=== PATIENT | male | born 1990 | race Caucasian/White ===

== ENCOUNTER 2017-04-12 18:10 | Emergency (ER) | payer BC ==
[2017-04-12 18:18] VITALS: PULSE 87; RESP 16; TEMP 97.5; O2SAT 98
--- NOTE | 2017-04-12 18:37 | EDPHY ---
H & P Time Seen by Provider: 04/12/17 18:15 HPI/ROS: CHIEF COMPLAINT: Right-sided abdominal pain, pruritus HISTORY OF PRESENT ILLNESS: 26-year-old male presents to the emergency department by private vehicle complaining of right-sided abdominal pain and flank pain over the last 1 week. The patient also notes that he has had extreme itching. He has taking a large amount of Benadryl and Rut to help with the itching. Does not notice rash. No recent travel. He complains night sweats which she states is malodorous. He was concerned that he was noticing that his skin was turning yellow. He is not notice dark colored urine. He has had normal bowel movements without diarrhea. No blood in his stool. No melena. No chest pain or difficulty breathing. The patient has a history of chronic Lyme disease which was diagnosed 6 months ago and is currently taking Bactrim and azithromycin. He has chronic pain as a result of this. No change in the medications. REVIEW OF SYSTEMS: Constitutional: No fever, no chills. Eyes: No double or blurry vision. ENT: No sore throat. Respiratory: No cough, no shortness of breath. Cardiac: No chest pain. Gastrointestinal: Right-sided abdominal pain. No vomiting or diarrhea. Genitourinary: No dysuria. Musculoskeletal: Right flank pain. No neck pain. Skin: Pruritus as noted above. No rashes. Neurological: No headache. Past Medical/Surgical History: Chronic Lyme disease, chronic pain Social History: Single Smoking Status: Never smoked Physical Exam: General Appearance: Alert, no distress. No apparent distress. Girlfriend at bedside. Eyes: Pupils equal and round. Extraocular motions are all intact. Nonicteric sclera. ENT: Mouth: Mucous membranes moist. Respiratory: No wheezing, rhonchi, or rales, lungs are clear to auscultation. Cardiovascular: Regular rate and rhythm. Gastrointestinal: Abdomen is soft. He has tenderness with palpation in the right upper quadrant. There is no masses, rebound or guarding noted. Positive CVA tenderness on the right, none on the left. Neurological: Alert and oriented x 3, cranial nerves II through XII grossly intact Skin: Warm and dry, no rashes. Musculoskeletal: Nontender to palpate along the cervical, thoracic or lumbar spine. Neck is supple. Extremities: Full range of motion and no peripheral edema. Psychiatric: Patient is oriented X 3, there is no agitation. Constitutional: Initial Vital Signs Temperature (C) 36.4 C 04/12/17 18:14 Heart Rate 87 04/12/17 18:14 Respiratory Rate 16 04/12/17 18:14 Blood Pressure 133/78 H 04/12/17 18:14 O2 Sat (%) 98 04/12/17 18:14 O2 Delivery Mode Room Air Allergies/Adverse Reactions: No Known Allergies Allergy (Unverified 04/12/17 18:12) Home Medications: Medication Instructions Recorded Azithromycin 1,000 mg PO DAILY 04/12/17 Bactrim SS 1,600 mg PO DAILY 04/12/17 Cymbalta 120 mg PO DAILY 04/12/17 Diclofenac Sodium 150 mg PO DAILY 04/12/17 LYRICA 300 mg PO DAILY 04/12/17 Lamotrigine 400 mg PO DAILY 04/12/17 Liothyronine Sodium 10 mg PO DAILY 04/12/17 valACYclovir 2,000 mg PO DAILY 04/12/17 Medical Decision Making - Diagnostics Imaging Results: Imaging Impressions Abdomen Ultrasound 04/12/17 18:35 IMPRESSION: 1. Contracted gallbladder, but no gallstones are identified. 2. There is no bile duct dilatation. 3. Bowel gas obscures much of the pancreas and the midportion of the abdominal aorta. 4. There is a 1.8 cm right hepatic lobe hyperechoic lesion, probably representing benign cavernous hemangioma. Follow-up sonography in 6 months is suggested. 5. Mild hepatomegaly. Findings and recommendations were discussed with LEIA STEPHENS PA-C at 19:29 , on 04/12/2017. Abdomen/Pelvis CT 04/12/17 20:29 Impression: 1. There is no evidence of nephrolithiasis, or obstructive uropathy. This does not exclude the diagnosis of pyelonephritis. 2. Constipation with mild sigmoid colon diverticulosis, but no active inflammation. 3. Mild hepatomegaly versus a Елена's right hepatic lobe. Findings were discussed with LEIA STEPHENS PA-C at 21:45, on 04/12/2017. Attention: This CT examination is specifically designed to evaluate patients who are clinically suspected of having acute obstructive uropathy. This examination does not use radiographic contrast, and as such, provides only a limited evaluation of the abdomen, pelvis, and retroperitoneum. If there is further clinical suspicion for pathological conditions other than obstructive uropathy, a complete CT evaluation of the abdomen and pelvis utilizing intravenous, oral, and rectal contrast should be considered. ED Course/Re-evaluation: 26-year-old male presents to the emergency department with right-sided abdominal pain and flank pain. The patient is concerned that he had more of a yellow skin tone. Laboratory studies were drawn and reveal normal CBC, normal chemistries including LFTs, normal lipase. Urinalysis reveals 5-10 red blood cells. Gallbladder ultrasound was unremarkable with the exception of a 1.8 cm right hepatic lobe possible cavernous hemangioma. Radiologist recommended repeat ultrasound in 6 months to evaluate this. I explained to the patient that he had 5-10 red blood cells in his urine. It is possible that this patient has a kidney stone. I discussed the pros and cons of CT imaging of the abdomen and pelvis including radiation exposure and the patient requests CT scan. CT imaging reveals no evidence of kidney stone. Patient was comfortable being discharged home. He was given primary care referral. He understands to have repeat abdominal ultrasound in 6 months to re- evaluate lesion in his liver. The patient will return if he develops any other change in symptoms or has any other concerns. Differential Diagnosis: Including but not limited to hepatitis, pancreatitis, cholecystitis, cholelithiasis, kidney stone, urinary tract infection, pyelonephritis - Data Points Laboratory Results: Laboratory Results 04/12/17 18:26 04/12/17 18:26 04/12/17 04/12/17 04/12/17 20:00 18:26 18:26 WBC 7.04 10^3/uL 10^3/uL (3.80-9.50) RBC 5.84 10^6/uL 10^6/uL (4.40-6.38) Hgb 17.3 g/dL g/dL (13.7-17.5) Hct 49.3 % % (40.0-51.0) MCV 84.4 fL fL (81.5-99.8) MCH 29.6 pg pg (27.9-34.1) MCHC 35.1 g/dL g/dL (32.4-36.7) RDW 14.6 % % (11.5-15.2) Plt Count 252 10^3/uL 10^3/uL (150-400) MPV 9.6 fL fL (8.7-11.7) Neut % (Auto) 51.9 % % (39.3-74.2) Lymph % (Auto) 36.2 % % (15.0-45.0) [place] % (Auto) 10.1 % % (4.5-13.0) Eos % (Auto) 0.9 % % (0.6-7.6) Baso % (Auto) 0.6 % % (0.3-1.7) Nucleat RBC Rel Count 0.0 % % (0.0-0.2) Absolute Neuts (auto) 3.66 10^3/uL 10^3/uL (1.70-6.50) Absolute Lymphs (auto) 2.55 10^3/uL 10^3/uL (1.00-3.00) Absolute Monos (auto) 0.71 10^3/uL 10^3/uL (0.30-0.80) Absolute Eos (auto) 0.06 10^3/uL 10^3/uL (0.03-0.40) Absolute Basos (auto) 0.04 10^3/uL 10^3/uL (0.02-0.10) Absolute Nucleated RBC 0.00 10^3/uL 10^3/uL (0-0.01) Immature Gran % 0.3 % % (0.0-1.1) Immature Gran # 0.02 10^3/uL 10^3/uL (0.00-0.10) Sodium 141 mEq/L mEq/L (134-144) Potassium 4.0 mEq/L mEq/L (3.5-5.2) Chloride 108 mEq/L mEq/L (97-110) Carbon Dioxide 22 mEq/l mEq/l (22-31) Anion Gap 11 mEq/L mEq/L (8-16) BUN 12 mg/dL mg/dL (7-23) Creatinine 1.2 mg/dL mg/dL (0.7-1.3) Estimated GFR > 60 Glucose 78 mg/dL mg/dL (70-100) Calcium 10.2 mg/dL mg/dL (8.5-10.4) Total Bilirubin 0.7 mg/dL mg/dL (0.1-1.4) Conjugated Bilirubin 0.4 mg/dL mg/dL (0.0-0.5) Unconjugated Bilirubin 0.3 mg/dL mg/dL (0.0-1.1) AST 40 IU/L IU/L (17-59) ALT 51 IU/L IU/L (21-72) Alkaline Phosphatase 49 IU/L IU/L (38-126) Total Protein 7.2 g/dL g/dL (6.3-8.2) Albumin 4.3 g/dL g/dL (3.5-5.0) Lipase 106.0 IU/L IU/L (23-300) Urine Color YELLOW Urine Appearance HAZY Urine pH 9.0 H (5.0-7.5) Ur Specific [place] 1.012 (1.002-1.030) Urine Protein NEGATIVE (NEGATIVE) Urine Ketones NEGATIVE (NEGATIVE) Urine Blood NEGATIVE (NEGATIVE) Urine Nitrate NEGATIVE (NEGATIVE) Urine Bilirubin NEGATIVE (NEGATIVE) Urine Urobilinogen NEGATIVE EU EU (0.2-1.0) Ur Leukocyte Esterase NEGATIVE (NEGATIVE) Urine RBC 5-10 /hpf H /hpf (0-3) Urine WBC 1-3 /hpf /hpf (0-3) Ur Epithelial Cells TRACE /lpf /lpf (NONE-1+) Amorphous Sediment PRESENT /hpf /hpf (NONE-1+) Urine Mucus TRACE /lpf /lpf (NONE-1+) Urine Glucose NEGATIVE (NEGATIVE) Departure - Departure Disposition: Home, Routine, Self-Care Clinical Impression: Abdominal pain Qualifiers: Abdominal location: right lower quadrant Qualified Code(s): R10.31 - Right lower quadrant pain Condition: Good Instructions: Acute Abdominal Pain (ED) Additional Instructions: Abdominal Pain: Return to the Emergency Department immediately for increasing pain, fever, vomiting, or if not completely better in 8-12 hours. You should have a follow-up abdominal ultrasound in 6 months to re-evaluate her liver. You have a 1.8 cm lesion that needs further evaluation. Referrals: GAEL GONZALEZ [Other] - 1-2 days without fail
[2017-04-12 18:44] LABS: % IMMATURE GRANULYOCYTES 0.3 % (0.0-1.1); ABSOLUTE IMMATURE GRANULOCYTES 0.02 10^3/uL (0.00-0.10); ADD DIFF? NO; ADD MORPH? NO; ADD SCAN? NO; ATYPICAL LYMPHOCYTE FLAG 20 (0-99); FRAGMENT RBC FLAG 0 (0-99); HEMATOCRIT 49.3 % (40.0-51.0); HEMOGLOBIN 17.3 g/dL (13.7-17.5); LEFT SHIFT FLG 0 (0-99); LIPEMIA HEMOLYSIS FLAG 90 (0-99); MEAN CELL HEMOGLOBIN 29.6 pg (27.9-34.1); MEAN CELL HEMOGLOBIN CONCENTR. 35.1 g/dL (32.4-36.7); MEAN CELL VOLUME 84.4 fL (81.5-99.8); MEAN PLATELET VOLUME 9.6 fL (8.7-11.7); PLATELET CLUMPS FLAG 0 (0-99); PLATELET COUNT 252 10^3/uL (150-400); RED BLOOD CELL COUNT 5.84 10^6/uL (4.40-6.38); RED CELL DISTRIBUTION WIDTH 14.6 % (11.5-15.2)
[2017-04-12 18:45] VITALS: BP 137/82
[2017-04-12 18:52] LABS: ALANINE AMINOTRANSFERASE 51 IU/L (21-72); ALBUMIN 4.3 g/dL (3.5-5.0); ALKALINE PHOSPHATASE 49 IU/L (38-126); ANION GAP 11 mEq/L (8-16); ASPARTATE AMINOTRANSFERASE 40 IU/L (17-59); BILIRUBIN,TOTAL 0.7 mg/dL (0.1-1.4); BILIRUBIN-CONJUGATED 0.4 mg/dL (0.0-0.5); BILIRUBIN-UNCONJUGATED 0.3 mg/dL (0.0-1.1); CALCIUM 10.2 mg/dL (8.5-10.4); CARBON DIOXIDE 22 mEq/l (22-31); CHLORIDE 108 mEq/L (97-110); CREATININE 1.2 mg/dL (0.7-1.3); GLOMERULAR FILTRATION RATE > 60; GLUCOSE 78 mg/dL (70-100); SODIUM 141 mEq/L (134-144); TOTAL PROTEIN 7.2 g/dL (6.3-8.2)
[2017-04-12 20:05] LABS: COLOR YELLOW; LEUKOCYTE ESTERASE,URINE NEGATIVE (NEGATIVE); NITRITE,URINE NEGATIVE (NEGATIVE)
[2017-04-12 20:09] LABS: AMORPHOUS PRESENT /hpf (NONE-1+); MUCUS TRACE /lpf (NONE-1+)
== END 2017-04-12 22:09 | disposition home or self-care (01) ==
DX: R10.31 Right lower quadrant pain (principal)

== ENCOUNTER 2017-07-19 01:15 | Emergency (ER) | payer BC ==
--- NOTE | 2017-07-19 01:24 | EDPHY ---
H & P Time Seen by Provider: 07/19/17 01:18 HPI/ROS: HPI The patient presents with episode of unresponsiveness, now resolved. The patient was found by his girlfriend and she could not arouse him. The patient says he last remembers working on his computer and then it becomes fuzzy. She called 911. Paramedics noted that he was breathing at a respiratory rate of 5 with a sat of 80% and he was difficult to arouse. They administered Narcan, 2 mg and he became more awake and alert. He denies any opiate use, though his girlfriend does use opiates for menstrual pain he says. He is on multiple medications including Lyrica. REVIEW OF SYSTEMS Constitutional: No fever, no chills. Eyes: No discharge. ENT: No sore throat. Cardiovascular: No chest pain, no palpitations. Respiratory: No cough, no shortness of breath. Gastrointestinal: No abdominal pain, no vomiting. Genitourinary: No hematuria. Musculoskeletal: No back pain. Skin: No rashes. Neurological: No headache. PMHx: States that he has chronic Lyme disease Soc Hx: Lives with his girlfriend, denies alcohol or drug use PHYSICAL General Appearance: Alert, no distress Eyes: Pupils equal and round no pallor or injection ENT, Mouth: Mucous membranes moist Respiratory: There are no retractions, lungs are clear to auscultation Cardiovascular: Regular rate and rhythm Gastrointestinal: Abdomen is soft and non-tender, no masses, bowel sounds normal Neurological: A&O, moves all extremities Skin: Warm and dry, no rashes Musculoskeletal: Neck is supple non tender Extremities: symmetrical, full range of motion Psychiatric: Patient is oriented X 3, there is no agitation Source: Patient, EMS - Medical/Surgical History Hx Asthma: No Hx Chronic Respiratory Disease: No Hx Diabetes: No Hx Cardiac Disease: No Hx Renal Disease: No Hx Cirrhosis: No Hx Alcoholism: No Hx HIV/AIDS: No Hx Splenectomy or Spleen Trauma: No Other PMH: lyme disease - Social History Smoking Status: Never smoked Constitutional: Initial Vital Signs Temperature (C) 36.4 C 07/19/17 01:15 Heart Rate 107 H 07/19/17 01:15 Respiratory Rate 18 07/19/17 01:15 Blood Pressure 147/108 H 07/19/17 01:15 O2 Sat (%) 97 07/19/17 01:15 O2 Delivery Mode Nasal Cannula O2 (L/minute) 2 Allergies/Adverse Reactions: egg [eggs] Allergy (Verified 07/19/17:26) Milk Containing Products [dairy] Allergy (Verified 07/19/17:) peanut Allergy (Verified 07/19/17:) Home Medications: Medication Instructions Recorded Azithromycin 1,000 mg PO DAILY 04/12/17 Cymbalta 120 mg PO DAILY 04/12/17 LYRICA 300 mg PO DAILY 04/12/17 Lamotrigine 400 mg PO DAILY 04/12/17 Liothyronine Sodium 10 mg PO DAILY 04/12/17 valACYclovir 2,000 mg PO DAILY 04/12/17 Cyclobenzaprine 07/19/17 Eszopiclone 07/19/17 Medical Decision Making Differential Diagnosis: This is a 27-year-old man with self-reported history of chronic Lyme disease on multiple medications including Lyrica and Lamictal who presents from home brought in by ambulance for altered mental status with diminished respiratory rate. He is symptoms improved after Narcan 2 mg in the field. Now he is still somewhat sedate though is breathing spontaneously. His pupils are approximately 2 mm, otherwise his exam is nonfocal. Differential diagnosis includes opiate overdose, medication overdose of pre gabapentin, electrolyte disturbance, dehydration, alcohol intoxication. In the emergency department, basic labs were checked and were all unremarkable. Patient was unable to provide a urine specimen. He became more awake and alert though did require oxygen for a small portion of his ER stay. He thinks he could have accidentally taken opioid medications and that could be the cause of his symptoms. His girlfriend was able to pick him up from the emergency room after approximately 6 hours of observation. He did not require any additional doses of Narcan. - Data Points Laboratory Results: Laboratory Results 07/19/17 01:40 07/19/17 01:40 07/19/17 07/19/17 01:40 01:40 WBC 10.17 10^3/uL H 10^3/uL (3.80-9.50) RBC 5.80 10^6/uL 10^6/uL (4.40-6.38) Hgb 17.1 g/dL g/dL (13.7-17.5) Hct 49.1 % % (40.0-51.0) MCV 84.7 fL fL (81.5-99.8) MCH 29.5 pg pg (27.9-34.1) MCHC 34.8 g/dL g/dL (32.4-36.7) RDW 13.1 % % (11.5-15.2) Plt Count 229 10^3/uL 10^3/uL (150-400) MPV 10.0 fL fL (8.7-11.7) Neut % (Auto) 65.1 % % (39.3-74.2) Lymph % (Auto) 26.0 % % (15.0-45.0) [place] % (Auto) 7.3 % % (4.5-13.0) Eos % (Auto) 0.9 % % (0.6-7.6) Baso % (Auto) 0.4 % % (0.3-1.7) Nucleat RBC Rel Count 0.0 % % (0.0-0.2) Absolute Neuts (auto) 6.63 10^3/uL H 10^3/uL (1.70-6.50) Absolute Lymphs (auto) 2.64 10^3/uL 10^3/uL (1.00-3.00) Absolute Monos (auto) 0.74 10^3/uL 10^3/uL (0.30-0.80) Absolute Eos (auto) 0.09 10^3/uL 10^3/uL (0.03-0.40) Absolute Basos (auto) 0.04 10^3/uL 10^3/uL (0.02-0.10) Absolute Nucleated RBC 0.00 10^3/uL 10^3/uL (0-0.01) Immature Gran % 0.3 % % (0.0-1.1) Immature Gran # 0.03 10^3/uL 10^3/uL (0.00-0.10) Sodium 141 mEq/L mEq/L (134-144) Potassium 3.7 mEq/L mEq/L (3.5-5.2) Chloride 104 mEq/L mEq/L (97-110) Carbon Dioxide 21 mEq/l L mEq/l (22-31) Anion Gap 16 mEq/L mEq/L (8-16) BUN 14 mg/dL mg/dL (7-23) Creatinine 1.3 mg/dL mg/dL (0.7-1.3) Estimated GFR > 60 Glucose 101 mg/dL H mg/dL (70-100) Calcium 9.5 mg/dL mg/dL (8.5-10.4) Total Bilirubin 0.4 mg/dL mg/dL (0.1-1.4) AST 54 IU/L IU/L (17-59) ALT 64 IU/L IU/L (21-72) Alkaline Phosphatase 39 IU/L IU/L (38-126) Total Protein 6.8 g/dL g/dL (6.3-8.2) Albumin 4.3 g/dL g/dL (3.5-5.0) Ethyl Alcohol < 10 mg/dL mg/dL (0-10) Departure - Departure Disposition: Home, Routine, Self-Care Clinical Impression: Respiratory depression Altered mental status Qualifiers: Altered mental status type: coma Coma depth: unspecified coma depth Coma timing : unspecified coma timing Qualified Code(s): R40.20 - Unspecified coma Condition: Good Instructions: Altered Mental Status (ED) Additional Instructions: You were very sedated tonight when the paramedics found you. You were barely breathing. This is concerning for an opiate overdose which could be related to taking too many pain pills. I recommend that you avoid taking sedating medicines like Lyrica. I recommend that you take her medications only directly from your pill bottles. You should return to the emergency room if your worse in any way. Referrals: Aida Yost MD [Medical Doctor] - As per Instructions
[2017-07-19 01:29] VITALS: TEMP 97.5
[2017-07-19 01:48] LABS: % IMMATURE GRANULYOCYTES 0.3 % (0.0-1.1); ABSOLUTE IMMATURE GRANULOCYTES 0.03 10^3/uL (0.00-0.10); ADD DIFF? NO; ADD MORPH? NO; ADD SCAN? NO; ATYPICAL LYMPHOCYTE FLAG 10 (0-99); FRAGMENT RBC FLAG 0 (0-99); HEMATOCRIT 49.1 % (40.0-51.0); HEMOGLOBIN 17.1 g/dL (13.7-17.5); LEFT SHIFT FLG 0 (0-99); LIPEMIA HEMOLYSIS FLAG 90 (0-99); MEAN CELL HEMOGLOBIN 29.5 pg (27.9-34.1); MEAN CELL HEMOGLOBIN CONCENTR. 34.8 g/dL (32.4-36.7); MEAN CELL VOLUME 84.7 fL (81.5-99.8); PLATELET CLUMPS FLAG 0 (0-99); PLATELET COUNT 229 10^3/uL (150-400); RED CELL DISTRIBUTION WIDTH 13.1 % (11.5-15.2)
--- NOTE | 2017-07-19 01:48 | CPEKG ---
Heart Rate: 84 RR Interval: 714 P-R Interval: 176 QRSD Interval: 86 QT Interval: 368 QTC Interval: 436 P [place]: 51 QRS [place]: 48 T Wave [place]: 13 EKG Severity - NORMAL ECG - EKG Impression: SINUS RHYTHM Electronically Signed By: Millicent Sun 19-Jul-2017 06:25:26
[2017-07-19 02:00] LABS: ALANINE AMINOTRANSFERASE 64 IU/L (21-72); ALBUMIN 4.3 g/dL (3.5-5.0); ALKALINE PHOSPHATASE 39 IU/L (38-126); ANION GAP 16 mEq/L (8-16); ASPARTATE AMINOTRANSFERASE 54 IU/L (17-59); BILIRUBIN,TOTAL 0.4 mg/dL (0.1-1.4); CALCIUM 9.5 mg/dL (8.5-10.4); CARBON DIOXIDE 21 mEq/l (22-31); CHLORIDE 104 mEq/L (97-110); CREATININE 1.3 mg/dL (0.7-1.3); ETHANOL SERUM < 10 mg/dL (0-10); GLOMERULAR FILTRATION RATE > 60; GLUCOSE 101 mg/dL (70-100); POTASSIUM 3.7 mEq/L (3.5-5.2); SODIUM 141 mEq/L (134-144); TOTAL PROTEIN 6.8 g/dL (6.3-8.2)
[2017-07-19 07:56] VITALS: BP 115/69; PULSE 76; RESP 18; O2SAT 95
== END 2017-07-19 07:56 | disposition home or self-care (01) ==
LOC: EDUNIT#
DX: R40.20 Unspecified coma (principal); J80 Acute respiratory distress syndrome; Z91.010 Allergy to peanuts
CPT/HCPCS: G0480

== ENCOUNTER 2017-09-28 17:20 | Emergency (ER) | payer BC, OTHER ==
--- NOTE | 2017-09-28 17:57 | EDPHY ---
H & P Stated Complaint: OD, narcan Source: Patient Exam Limitations: No limitations - Personal History Current Tetanus/Diphtheria Vaccine: Yes Current Tetanus Diphtheria and Acellular Pertussis (TDAP): Yes Tetanus Vaccine Date: 2015 - Medical/Surgical History Hx Asthma: No Hx Chronic Respiratory Disease: No Hx Diabetes: No Hx Cardiac Disease: No Hx Renal Disease: No Hx Cirrhosis: No Hx Alcoholism: No Hx HIV/AIDS: No Hx Splenectomy or Spleen Trauma: No Other PMH: lyme disease, depression - Social History Smoking Status: Current every day smoker Time Seen by Provider: 09/28/17 17:56 HPI/ROS: HPI: This is a 19-year-old male presents with Chief Complaint: OD, narcan Location: Body Quality: Oxycodone overdose Duration: Prior to arrival Signs and Symptoms:+ nausea, + vomiting, + dull aching headache Timing: Sudden, rapidly improving Severity: Moderate to severe Context: Patient reports that he has a drug and alcohol problem. He intentionally took several pills of oxycodone; will not disclose dosages or how many pills; for chronic back pain. His friend was talking to him on the phone and noted slurred speech. His girlfriend was in the apartment and found him with slurred speech, and impaired mentation. His girlfriend called 911 who gave the patient Narcan and he immediately vomited and became alert and oriented x4. He adamantly denies suicidal ideation/homicidal ideations/ hallucinations. He does admit to taking too many oxycodone as well as not having a prescription for the same medication. Later patient reports he took #6 , 10 mg tabs of oxycodone total. Friends are at bedside and reports that patient has a history of depression and has an alcohol and drug abuse problem. He denies any prior suicide attempts or psychiatric inpatient hospitalizations. Modifying Factors: Narcan Comment: ROS: see HPI Constitutional: No fever, no chills, no weight loss Eyes: No blurred vision Respiratory: No shortness of breath, no cough Cardiovascular: No chest pain Gastrointestinal: No nausea, no vomiting, no diarrhea Genitourinary: No dysuria Extremities: No myalgias Neurologic: No weakness, no numbness Skin: No rashes Hematologic: No bruising, no bleeding MEDICAL/SURGICAL/SOCIAL HISTORY: Medical history: Depression and Lyme disease. Surgical history: Denies Social history: Employed CONSTITUTIONAL: Physically fit young adult white male, awake and alert, no obvious distress HEENT: Atraumatic and normocephalic, PERRL, EOMI. Tympanic membranes clear. Oropharynx clear, no exudate and moist pink mucosa. Airway patent. No lymphadenopathy. No meningismus. Cardiovascular: Normal S1/S2, mild tachycardia, regular rhythm, without murmur rub or gallop. PULMONARY/CHEST: Symmetrical and nontender. Clear to auscultation bilaterally. Good air movement. No accessory muscle usage. ABDOMEN: Soft, nondistended, nontender, no rebound, no guarding, no peritoneal signs, no masses or organomegaly. No CVAT. EXTREMITIES: 2/2 pulses, strength 5/5, no deformities, no clubbing, no cyanosis or edema. NEUROLOGICAL: no focal neuro deficits. GCS 15. Speech is clear. No fine motor or large motor deficits noted. Ambulatory without deficits. SKIN: Warm and dry, no erythema. no rash. Good capillary refill. (Jennifer Onofre) Constitutional: Initial Vital Signs Temperature (C) 36.4 C 09/28/17 17:20 Heart Rate 104 H 09/28/17 17:20 Respiratory Rate 16 09/28/17 17:20 Blood Pressure 148/111 H 09/28/17 17:20 O2 Sat (%) 100 09/28/17 17:20 O2 Delivery Mode Room Air O2 (L/minute) 2 Allergies/Adverse Reactions: egg [eggs] Allergy (Verified 07/19/17 01:26) Milk Containing Products [dairy] Allergy (Verified 07/19/17 01:26) peanut Allergy (Verified 07/19/17 01:26) Home Medications: Medication Instructions Recorded Atovaquone [Mepron] 750 mg PO BID 09/28/17 Azithromycin [Zithromax] 500 mg PO BID 09/28/17 Duloxetine HCl 120 mg PO DAILY 09/28/17 Eszopiclone [Eszopiclone] 3 mg PO HS PRN 09/28/17 Liothyronine Sodium 5 mcg PO BID 09/28/17 Pregabalin [Lyrica 150mg (*)] 150 mg PO BID 09/28/17 lamoTRIgine [Lamictal] 400 mg PO HS 09/28/17 valACYclovir [Valtrex (*)] 1,000 mg PO BID 09/28/17 Medical Decision Making ED Course/Re-evaluation: Labs, UDS, IV fluids, IV medications ordered 1800: Placed on detainer for mental health evaluation for questionable intentional drug overdose. Although patient is adamant he did not intend to harm himself. Patient given 2 L normal saline and IV Zofran 1900: Notified by a nurse that patient is slurring his words and his O2 sats on room air down tonight 79%. IV Narcan 0.4 mg given placed on 2 L nasal cannula with repeat O2 sats comment to 99%. Patient now admits that he took a total of 150 mg of oxycodone between 3 and 4:00 p.m. 190: ED decision to consult for admission, spoke with hospitalist, Dr. Hdz , who kindly accepts to provide further care and requests ICU bed. Labs reviewed and show normal acetaminophen level, normal LFTs; + leukocytosis, elevated anion gap and creatinine of 1.4 all consistent with overdose. 1930: Notified by the charge nurse that we have no ICU beds. Patient will have to be transferred. Call transfer center [facility] Decision made after speaking with attending to keep patient in the ER and to continue to monitor. Repeat acetaminophen level be drawn at 10:25 p.m. placed on M1 hold 2330: Repeat lab value shows stable acetaminophen and LFTs. Medically clear for mental health evaluation. 0030: Spoke with mental health provider who is making the recommendation for patient to be transferred to [address] [place] [address] for further psychiatric care. (Jennifer Onofre) 7:00 a.m.-I assumed care of this patient at shift change. He has been expected to [facility] and will be transported there this morning. He presents with suicidal attempt with an overdose of OxyContin. He received Narcan IV x2 and his mental status and respiratory depression cleared. Overnight, he became upset about admission to mental [facility] and received Zyprexa. He has been mainly sleeping and has been cooperative since then. Accepted to [facility]. (Dennise Arellano) Differential Diagnosis: Altered mental status including but not limited to hypoglycemia, infectious process, electrolyte abnormality, head injury and intoxicants. (Jennifer Onofre) Other Provider: 3:30 a.m. the patient has been medically cleared. He has been evaluated by Mental Health and they plan to admit. He became somewhat angry with this. We will offer him Zyprexa. If he continues to elevate will treat with Haldol. 5:40 a.m. the patient has been accepted by Dr. Roland at [facility]. I have completed transfer paperwork. 7:00 a.m. care transferred to Dr. Dennise Arellano. (Ryan Parks) - Data Points Laboratory Results: Laboratory Results 09/29/17 00:45 09/28/17 18:25 Medications Given: Discontinued Medications Famotidine (Pepcid) 20 mg PO EDNOW ONE Stop: 09/28/17 23:03 Last Admin: 09/28/17 23:07 Dose: 20 mg Sodium Chloride (Ns) 1,000 mls @ 0 mls/hr IV EDNOW ONE; Wide Open PRN Reason: Protocol Stop: 09/28/17 18:04 Last Admin: 09/28/17 18:32 Dose: 1,000 mls Sodium Chloride (Ns) 1,000 mls @ 3,000 mls/hr IV ONCE ONE Stop: 09/28/17 19:29 Last Admin: 09/28/17 20:18 Dose: 1,000 mls Sodium Chloride (Ns) 1,000 mls @ 0 mls/hr IV EDNOW ONE; Wide Open PRN Reason: Protocol Stop: 09/28/17 19:42 Last Admin: 09/28/17 23:43 Dose: Not Given Lorazepam (Ativan Injection) 1 mg IVP EDNOW ONE Stop: 09/28/17 19:31 Last Admin: 09/28/17 20:14 Dose: Not Given Naloxone HCl (Narcan) 0.4 mg IVP EDNOW ONE Stop: 09/28/17 19:02 Last Admin: 09/28/17 19:19 Dose: 0.4 mg Olanzapine (Zyprexa Zydis) 10 mg PO EDNOW ONE Stop: 09/29/17 04:09 Last Admin: 09/29/17 04:08 Dose: 10 mg Ondansetron HCl (Zofran) 4 mg IVP EDNOW ONE Stop: 09/28/17 18:04 Last Admin: 09/28/17 18:33 Dose: 4 mg Ondansetron HCl (Zofran Odt) 4 mg PO EDNOW ONE Stop: 09/29/17 04:08 Last Admin: 09/29/17 04:09 Dose: 4 mg Departure - Departure Disposition: Other Psych, Not [place] Clinical Impression: Hypoxia, Attempted suicide Opiate overdose Qualifiers: Encounter type: initial encounter Injury intent: intentional self-harm Qualified Code(s): T40.602A - Poisoning by unspecified narcotics, intentional self-harm, initial encounter Condition: Fair Instructions: Polysubstance Abuse (ED), Adult Overdose (ED), Opioid Overdose ( ED) Referrals: GAEL GONZALEZ [Primary Care Provider] - As per Instructions
[2017-09-28] MEDS ORDERED: ONDANSETRON 4 MG/2 ML VIAL IVP ONE (18:03)
[2017-09-28] MEDS ORDERED: NS 1,000 ML IV ONE ×3 (18:03→19:41)
[2017-09-28 18:35] LABS: PLATELET COUNT 216 10^3/uL (150-400)
[2017-09-28] MEDS ORDERED: NALOXONE HCL 0.4 MG/ML INJ IVP ONE (19:01)
[2017-09-28] MEDS ORDERED: ONDANSETRON 4 MG/2 ML VIAL IVP PRN (19:10)
[2017-09-28] MEDS ORDERED: ACETAMINOPHEN 325 MG TAB PO PRN (19:10)
[2017-09-28] MEDS ORDERED: ONDANSETRON DISINTEGRATING 4 MG TAB PO PRN (19:10)
[2017-09-28] MEDS ORDERED: NALOXONE HCL 0.4 MG/ML INJ IVP PRN (19:15)
[2017-09-28] MEDS ORDERED: NS 1,000 ML IV SCH (19:15)
[2017-09-28 19:27] LABS: CREATINE KINASE 284 IU/L (0-224)
[2017-09-28] MEDS ORDERED: LORazepam 2 MG/ML INJ IVP ONE (19:30)
[2017-09-28] MEDS ORDERED: NALOXONE HCL 0.4 MG/ML INJ ONE (20:25)
--- NOTE | 2017-09-28 21:52 | GHP ---
[f rep st] HISTORY AND PHYSICAL DATE OF ADMISSION: 09/28/2017 CHIEF COMPLAINT: Patient was found with slurred speech and impaired mentation. HISTORY OF PRESENT ILLNESS: A 27-year-old male previously in the [employer] with a history of major dep ressive disorder and PTSD, who reports chronic pain in his back and hips, who was obtaining oxycodone without prescription for self treatment of his pain, who reports taking a large amount of oxycodone estimated at 150 mg for the emergency room provider. The patient describes not knowing how strong th ey were, taking several, not feeling anything so taking more, and then coming near to losing consciou sness. Patient denies this is an intentional act of suicide or intent to hurt himself. He was simpl y trying to treat his chronic pain. The patient in the emergency department reports feeling very let hargic. Denies any shortness of breath. Denies chest pain. Reports his chronic back and hip pain. Denies abdominal discomfort, nausea, vomiting. Denies any difficulty passing urine. Denies any pre vious suicide attempts or psychiatric hospitalizations. PAST MEDICAL HISTORY: 1. Chronic Lyme disease. 2. Major depressive disorder. Patient actively seeks treatment. 3. Attention deficit hyperactivity disorder. 4. Posttraumatic stress disorder. 5. Chronic pain. 6. History of alcohol abuse, reportedly abstaining. 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 FAMILY HISTORY: Negative for depression. REVIEW OF SYSTEMS: A 10-point review of systems is negative with the exception of that reported in t he HPI. PHYSICAL EXAMINATION: VITAL SIGNS: Blood pressure 148/111, heart rate 104, respiratory rate 16, sat urating 97% on 2 L, 36.4. GENERAL: This is a young, healthy-appearing male, who appears very somnol ent on my examination. HEENT: Notable for dry mucous membranes. Eye exam is anicteric. CARDIAC: Patient is regular rate and rhythm. PULMONARY: Diminished respiratory effort, but clear to ausculta tion. GASTROINTESTINAL: Positive bowel sounds. Abdomen soft. MUSCULOSKELETAL: Negative for any l ower extremity edema. SKIN: Negative for any rashes. NEUROLOGIC: Patient is arousable, but very s omnolent, is able to answer questions and move all 4 extremities. He is currently protecting his air way. LABORATORY DATA: White count 23,000, hematocrit 55, platelet count of 216. Creatinine of 1.4. Sodi um of 144, anion gap of 18, salicylates are less than 1, acetaminophen less than 10, alcohol less kamran n 10. Telemetry, which I personally reviewed and interpreted, shows sinus rhythm. ASSESSMENT AND PLAN: This is a 27-year-old male with an unintentional opioid overdose. 1. Acute opioid overdose. Patient's oxygen saturations dropped and was treated with Narcan in the e mergency department with rapid rebound in his respiratory rate. He has received 2 doses of Narcan in the emergency department, and will be admitted to the intensive care unit for close monitoring and i ntermittent use of Narcan. Psychiatry has been consulted from the emergency department for safety as sessment related to his major depressive disorder. 2. Acute kidney injury. I do not have a baseline on this patient. Creatinine is 1.4. Suspect this is likely hypovolemic in nature. Will check a CK to rule out rhabdomyolysis, treat with IV fluids, and recheck in the morning. 3. Polycythemia. I, again, think this is likely hemoconcentration. Will recheck in the morning aft er fluid resuscitation. 4. Leukocytosis. Patient is not describing any infectious symptoms. Will not initiate additional w orkup at this time, but again recheck in the morning. 5. History of polysubstance abuse. Clearly, the patient will need resources and assistance when he is medically stable for evaluation. 6. Chronic Lyme disease. He has an established outpatient provider whom he will continue to receive care with. 7. Prophylaxis with Lovenox. DIET: Clear liquids until he is protecting his airway. Not positive we will not need to intubate. DISPOSITION: I expect greater than 2 midnights. Patient will need medical stabilization and psychia tric evaluation. Discussed the case with the emergency room physician. Patient will be triaged to [facility] ICU for proper monitoring and intermittent Narcan administration. /[id number]/MODL
[2017-09-28] MEDS ORDERED: FAMOTIDINE 20 MG TAB PO ONE (23:02)
[2017-09-29 00:56] LABS: PLATELET COUNT 209 10^3/uL (150-400)
[2017-09-29] MEDS ORDERED: OLANZapine DISINTEGR 10 MG TAB ONE (03:54)
[2017-09-29] MEDS ORDERED: ONDANSETRON DISINTEGRATING 4 MG TAB ONE (03:59)
[2017-09-29] MEDS ORDERED: ONDANSETRON DISINTEGRATING 4 MG TAB PO ONE (04:07)
[2017-09-29] MEDS ORDERED: OLANZapine DISINTEGR 10 MG TAB PO ONE (04:08)
[2017-09-29 06:41] VITALS: PULSE 75; RESP 16
[2017-09-29] MEDS ORDERED: ENOXAPARIN 40 MG/0.4 ML SYR SC SCH (09:00)
[2017-09-29 09:08] VITALS: BP 132/80; TEMP 97.7; O2SAT 98
== END 2017-09-29 09:39 ==
LOC: EDUNIT#
DX: T40.2X2A Poisoning by other opioids, intentional self-harm, initial encounter (principal); R09.02 Hypoxemia; F17.200 Nicotine dependence, unspecified, uncomplicated; E86.9 Volume depletion, unspecified; Z91.010 Allergy to peanuts
CPT/HCPCS: 96361; 96374; 96375; 99285; J2310; J2405; 80305; G0480